=== PATIENT | male | born 1980 | race Caucasian/White ===

== ENCOUNTER 2017-02-12 18:49 | Emergency (ER) | payer SELFPAY ==
[~2017-02-12] VITALS: Ht 188 cm; Wt 93.5 kg
[~2017-02-12 18:49] MED LIST: MOBI15TA PO; OXYC-426 PO
[2017-02-12 18:55] VITALS: BP 127/58; PULSE 75; RESP 16; TEMP 97.8; O2SAT 97
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
[2017-02-12] MEDS ORDERED: LIDOCAINE 1%/EPINEPHrine 1:100,000 SOLN 20 ML VIAL INFIL ONE (19:45)
[2017-02-12] MEDS ORDERED: TETANUS/DIPHTHERIA TOXOID ADULT 0.5 ML VIAL IM ONE (20:00)
== END 2017-02-12 20:30 | disposition home or self-care (01) ==
LOC: PHEFT 18:49
DX: S61.217A Laceration without foreign body of left little finger without damage to nail, initial encounter (principal); Z23 Encounter for immunization; Z72.0 Tobacco use; Z87.39 Personal history of other diseases of the musculoskeletal system and connective tissue; W45.8XXA Other foreign body or object entering through skin, initial encounter
CPT/HCPCS: 12001; 90471; 90714

== ENCOUNTER 2017-04-18 04:36 | Emergency (ER) | payer SELFPAY ==
[~2017-04-18] VITALS: Ht 188 cm; Wt 90.5 kg
[2017-04-18 04:42] VITALS: BP 125/78; PULSE 60; RESP 16; TEMP 98.4; O2SAT 98
[2017-04-18] MEDS ORDERED: MOBI15TA PO (04:50)
[2017-04-18] MEDS ORDERED: OXYC30TA PO (04:50)
--- NOTE | 2017-04-18 05:07 | PD ---
HPI Chief Complaint: Oral / Dental Pain or Problem Time Seen by Provider: 04:47 Travel History International Travel<30 days: No Contact w/Intl Traveler<30days: No Traveled to known affect area: No History of Present Illness HPI The patient is a 37-year-old male that had his left upper wisdom tooth fall out about a year ago and he complains of some pain in that area for 3 hours. The patient is on high-dose narcotic pain medicines that he gets from his pain specialist and this did not help the pain. PFSH Past Medical History Diminished Hearing: No Musculoskeletal: Yes (chronic back pain) Immunizations Current: No Tetanus Vaccination: < 5 Years Influenza Vaccination: No Social History Alcohol Use: Yes (rare) Tobacco Use: Yes (1/2 PPD) Substance Use: Yes (occasional thc) Allergies-Medications (Allergen,Severity, Reaction): Coded Allergies: No Known Allergies (Verified , 04/18/17) Reported Meds & Prescriptions Reported Meds & Active Scripts Active Amoxicillin 500 Mg Tab 500 Mg PO TID 10 Days Reported Oxycodone (Oxycodone HCl) 30 Mg Tab 30 Mg PO Q6H PRN Mobic (Meloxicam) 15 Mg Tab 15 Mg PO DAILY Review of Systems Except as stated in HPI: all other systems reviewed are Neg Physical Exam Narrative GENERAL: Well-nourished, well-developed patient in slight apparent distress with his dental pain on the left upper wisdom tooth. His vital signs are normal. SKIN: Focused skin assessment warm/dry. HEAD: Normocephalic. EYES: No scleral icterus. No injection or drainage. NECK: Supple, trachea midline. No JVD or lymphadenopathy. CARDIOVASCULAR: Regular rate and rhythm without murmurs, gallops, or rubs. RESPIRATORY: Breath sounds equal bilaterally. No accessory muscle use. GASTROINTESTINAL: Abdomen soft, non-tender, nondistended. MUSCULOSKELETAL: No cyanosis, or edema. BACK: Nontender without obvious deformity. No CVA tenderness. DENTAL: No loose or chipped teeth. No malocclusion. There is tenderness around the left upper wisdom tooth socket. No drainable abscesses are identified. Very little swelling is present in the gums. Data Data Last Documented VS Vital Signs Date Time Temp Pulse Resp B/P (MAP) Pulse Ox O2 Delivery O2 Flow Rate FiO2 04/18/17 04:42 98.4 60 16 125/78 (94) 98 Orders Orders Lidocaine 1% Inj (50 Ml) (Xylocaine 1% I (04/18/17 05:30) Ceftriaxone Inj (Rocephin Inj) (04/18/17 05:30) MDM Medical Decision Making Medical Screen Exam Complete: Yes Emergency Medical Condition: Yes Medical Record Reviewed: Yes Differential Diagnosis Dental infection, drainable dental abscess, Nathaniel's angina-unlikely, dry socket pain, retained roots of wisdom tooth Narrative Course The patient may have retained roots of the wisdom tooth fell out. He needs to see a dentist/oral surgeon to take care of this. He will be given amoxicillin 500 mg 3 times daily with several refills. Patient appears to have a dental infection. This is unlikely to be dry socket pain, it was approximately 1 year when his tooth fell out. He does not have any drainable abscesses. Procedures Procedure Narrative A dental block was done around the left upper wisdom tooth. This resulted in marked decrease in pain. Rocephin was given IM to speed up the antibiotic affect. The socket where the left upper wisdom tooth was was irrigated copiously with saline using a 35 cc syringe and a 21-gauge plastic catheter. Diagnosis Primary Impression: Dental infection Additional Instructions: You have powerful pain medication at home and you may have to rely on that until the antibiotics take over. The amoxicillin is one tablet 3 times daily and it is free at [facility]. Follow-up with a dentist/oral surgeon as soon as possible. Med/Other Pt SpecificInfo: Prescription(s) given Scripts Amoxicillin (Amoxicillin) 500 Mg Tab 500 MG PO TID for Infection for 10 Days, TAB 0 Refills Prov: Govind Lubin MD 04/18/17 Disposition: 01 DISCHARGE HOME Condition: Stable Govind Lubin MD Apr 18, 2017 05:07
[2017-04-18] MEDS ORDERED: AMOX500T PO (05:09)
[2017-04-18] MEDS ORDERED: LIDOCAINE HCL 1% 50 ML VIAL IM ONE (05:30)
== END 2017-04-18 06:01 | disposition home or self-care (01) ==
LOC: PHED 04:36
DX: K04.7 Periapical abscess without sinus (principal); F17.200 Nicotine dependence, unspecified, uncomplicated
CPT/HCPCS: 64400; 96372; 99283; J0696

== ENCOUNTER 2017-08-07 13:12 | Emergency (ER) | payer SELFPAY ==
[~2017-08-07] VITALS: Ht 188 cm; Wt 100.0 kg
[~2017-08-07 13:12] MED LIST changes: +AMOX500T PO; -OXYC-426 PO; +OXYC30TA PO
[2017-08-07 13:17] VITALS: BP 147/74; PULSE 65; RESP 16; TEMP 99.1; O2SAT 99
[2017-08-07] MEDS ORDERED: BUPIVACAINE HCL PF 0.5% 10 ML VIAL INFIL ONE (13:30)
[2017-08-07] MEDS ORDERED: MAGICADU2 SWISH-SPIT (13:31)
[2017-08-07] MEDS ORDERED: PENI500T PO (13:31)
--- NOTE | 2017-08-07 13:35 | PD ---
HPI Chief Complaint: Oral / Dental Pain or Problem Time Seen by Provider: 13:21 Travel History International Travel<30 days: No Contact w/Intl Traveler<30days: No Traveled to known affect area: No History of Present Illness HPI 37 year old male presents for evaluation of dental pain. Symptoms started 2-3 days ago. Pain is throbbing, constant, worse when chewing. Pain is localized to the left maxillary third molar. He has had this problem before. He tried taking ibuprofen the pain persisted which prompted evaluation. No other complaints. PFSH Past Medical History Diminished Hearing: No Musculoskeletal: Yes (chronic back pain) Immunizations Current: No Tetanus Vaccination: < 5 Years Influenza Vaccination: No Past Surgical History Surgical History: No Previous Surgery Social History Alcohol Use: Yes (rare) Tobacco Use: Yes (vapes) Substance Use: Yes (occasional thc) Allergies-Medications (Allergen,Severity, Reaction): Coded Allergies: No Known Allergies (Verified Adverse Reaction, Unknown, 08/07/17) Reported Meds & Prescriptions Reported Meds & Active Scripts Active Penicillin V Potassium 500 Mg Tab 500 Mg PO Q8H 10 Days Magic Mouthwash Adult Liq (Multi-Ingredient Mouthwash/Gargle) 120 Ml Susp 10 Ml SWISH-SPIT ACHS Each 5mL contains: Nystatin 200,000units, Diphenhydramine 4.25mg, Viscous Lidocaine 10mg, Hartley syrup 0.8 mL Review of Systems General / Constitutional: No: Fever, Chills HENT: Positive: Dental Difficulties Physical Exam Narrative GENERAL: Well-developed well-nourished male in no acute distress SKIN: Warm and dry. HEAD: Atraumatic. Normocephalic. EYES: Pupils equal and round. No scleral icterus. No injection or drainage. ENT: No nasal bleeding or discharge. Mucous membranes pink and moist. Multiple areas of dental decay noted. There is some gingival edema noted to the left maxillary molars. There is no trismus or facial edema. NECK: Trachea midline. No JVD. No lymphadenopathy or submandibular edema. CARDIOVASCULAR: Regular rate and rhythm. No murmur appreciated. RESPIRATORY: No accessory muscle use. Clear to auscultation. Breath sounds equal bilaterally. Data Data Last Documented VS Vital Signs Date Time Temp Pulse Resp B/P (MAP) Pulse Ox O2 Delivery O2 Flow Rate FiO2 08/07/17 13:17 99.1 65 16 147/74 (98) 99 Orders Orders Bupivacaine Pf 0.5% Inj (Marcaine Pf 0.5 (08/07/17 13:30) Ed Discharge Order (08/07/17 13:46) MDM Medical Decision Making Medical Screen Exam Complete: Yes Emergency Medical Condition: Yes Medical Record Reviewed: Yes Differential Diagnosis Dental caries, pulpitis, pericoronitis, periodontal abscess impacted molar, alveolar osteitis Narrative Course 37-year-old male presents with 3 days of dental pain. Examination is consistent with dental caries. The patient requested dental block so posterior superior alveolar nerve block was attempted with 0.5% Marcaine. There was minimal relief in pain and the patient declined additional attempts. He is being discharged with penicillin, Magic mouthwash. He appears to be prescribed long-term oxycodone per efore, last rx 08/01/2017, and he can also use over-the -counter NSAIDs. Procedures Procedure Narrative Posterior superior alveolar nerve block: 0.5% Marcaine injected in the left maxillary gingiva. Total of 3 mL of Marcaine was used. Diagnosis Primary Impression: Dental caries Additional Instructions: Medication as prescribed. Continue using your prescribed oxycodone as well as [id number] ibuprofen for pain relief. Follow up with a dentist for definitive therapy. Return for any emergent medical conditions. Med/Other Pt SpecificInfo: Prescription(s) given Scripts Penicillin V Potassium (Penicillin V Potassium) 500 Mg Tab 500 MG PO Q8H for Infection for 10 Days, #30 TAB 0 Refills Prov: Marcello Hart MD 08/07/17 Gvgiazoi-Uqfliyoeycjwvkv-Yvedqzhih Liq (Magic Mouthwash Adult Liq) 120 Ml Susp 10 ML SWISH-SPIT ACHS for Mouth sores, #120 ML 1 Refill Each 5mL contains: Nystatin 200,000units, Diphenhydramine 4.25mg, Viscous Lidocaine 10mg, Hartley syrup 0.8 mL Prov: Marcello Hart MD 08/07/17 Disposition: 01 DISCHARGE HOME Condition: Stable Júnior Valdez Aug 07, 2017 13:35
== END 2017-08-07 13:56 | disposition home or self-care (01) ==
LOC: PHEFT 13:12
DX: K02.9 Dental caries, unspecified (principal); Z72.0 Tobacco use; Z87.39 Personal history of other diseases of the musculoskeletal system and connective tissue
CPT/HCPCS: 64450